=== PATIENT | female | born 1965 | race Two or more races ===

== ENCOUNTER 2023-03-27 16:32 | Emergency (ER) | payer OTHER ==
[~2023-03-27] VITALS: Ht 162.6 cm; Wt 93.4 kg
[2023-03-27] MEDS ORDERED: COZAAR100 MG (16:50)
[2023-03-27] MEDS ORDERED: HYDROCHLOROTHIA25 MG (16:50)
[2023-03-27] MEDS ORDERED: METFORMIN HCL500 M3 (16:50)
[2023-03-27] MEDS ORDERED: PROTONIX40 M1 (16:51)
[2023-03-27] MEDS ORDERED: ATORVASTATIN CA20 MG (16:51)
[2023-03-27] MEDS ORDERED: AMLODIPINE BESYL5 MG (16:51)
[2023-03-27] MEDS ORDERED: PAROXETINE HCL10 MG (16:52)
[2023-03-27] MEDS ORDERED: FAMOTIDINE/PF 20 MG in 0.9 % SODIUM CHLORIDE 8 ML IV PUSH STA (17:06)
[2023-03-27] MEDS ORDERED: ONDANSETRON HCL 2 MG/ML VIAL IV ONE (17:15)
[2023-03-27] MEDS ORDERED: KETOROLAC TROMETHAMINE 30 MG VIAL IV ONE (17:15)
[2023-03-27] MEDS ORDERED: 0.9 % SODIUM CHLORIDE 1,000 ML IV SCH (17:15)
[2023-03-27 17:29] LABS: HEMATOCRIT 35.3 % (36.0-45.00); HEMOGLOBIN 11.9 g/dL (12.0-15.00); MEAN CELL VOLUME 95.8 fL (80.00-100.00); MEAN CORPUSCULAR HEMOGLOBIN 32.3 pg (27.00-32.0); MEAN CORPUSCULAR HGB CONC 33.7 g/dl (32.0-36.0); PLATELET COUNT 295 K/uL (150-450); RED BLOOD COUNT 3.69 M/uL (4.00-6.00); RED CELL DISTRIBUTION WIDTH 16.1 % (11.5-14.5)
[2023-03-27 18:37] LABS: ALBUMIN 4.4 gm/dL (3.4-5.0); BILIRUBIN TOTAL 0.33 mg/dL (0.3-1.2); CALCIUM 10.3 mg/dL (8.5-10.1); CREATININE SERUM 0.8 mg/dL (0.55-1.02); GFR 73.41; GLOBULINA 3.7 G/DL (2.4-3.5); POTASSIUM 3.91 mEq/L (3.5-5.1); TOTAL PROTEIN 8.1 gm/dL (6.4-8.2)
[2023-03-27] MEDS ORDERED: PEPCID AC20 MG PO (19:03)
[2023-03-27] MEDS ORDERED: ZOFRAN8 MG PO (19:03)
== END 2023-03-27 19:12 | disposition home or self-care (01) ==
LOC: ER 16:33
PROVIDERS: General Practice
DX: K29.70 Gastritis, unspecified, without bleeding (principal); R11.2 Nausea with vomiting, unspecified; Z85.89 Personal history of malignant neoplasm of other organs and systems; I10 Essential (primary) hypertension
CPT/HCPCS: 36415; 96365; 96366; 99282; J1885; J2405; J3490; J7030